=== PATIENT | male | born 1965 | race Caucasian/White ===

== ENCOUNTER 2019-03-28 12:01 | Inpatient (IN) ==
[2019-03-28] MEDS ORDERED: Famotidine 20 MG/2 ML VIAL IVP ONE (12:18)
[2019-03-28] MEDS ORDERED: Acetaminophen IV 1,000 MG/100 ML INFUS..BTL IVPB ONE (12:19)
[2019-03-28] MEDS ORDERED: Celecoxib 200 MG CAPSULE PO ONE (12:19)
[2019-03-28] MEDS ORDERED: Pregabalin 75 MG CAPSULE PO ONE (12:20)
[2019-03-28] MEDS ORDERED: *HR* OxyCODONE ER (12 HR) 10 MG TABLET PO ONE (12:20)
[2019-03-28] MEDS ORDERED: *HR* Promethazine 25 MG/ML VIAL IVP PRN (12:22)
[2019-03-28] MEDS ORDERED: *HR* Labetalol 20 MG/4 ML SYRINGE IVP PRN (12:22)
[2019-03-28] MEDS ORDERED: *HR* HYDROmorphone 2 MG TABLET PO PRN (12:22)
[2019-03-28] MEDS ORDERED: *HR* HYDROmorphone (PF) 1 MG/ML SYRINGE IVP PRN (12:22)
[2019-03-28] MEDS ORDERED: *HR* OxyCODONE Immed Rel 5 MG TABLET PO PRN (12:22)
[2019-03-28] MEDS ORDERED: Albuterol 2.5 MG/3 ML NEBULIZER IH ONE (12:25)
[2019-03-28] MEDS ORDERED: Clindamycin 900 MG/50 ML 900 MG/50 ML IV.SOLN IVPB ONE (12:25)
--- NOTE | 2019-03-28 12:29 | Anesthesia Evaluation PreOp ---
Date of Encounter: 03/28/19 Time of Encounter: 12:27 - Past History Planned Operation: Revision R-TSR Cardiac History: Denies any Significant Hx Pulmonary History: Smoker (currently E-cigs/"Vapes"), COPD (denies) ACADEMIC ADMINISTRATOR History: Other (Anxiety/Depression. Chronic pain/DDD/Lumbar stenosis) Other Medical History: GERD Anesthesia History: No Prior Anesthetic Complications, Past Anesthesia (Elbow 1997, R-TSR x 2 [2005&2010], Hernia repair 2009, Nasal/Sinus surgery, C5-6 Fusion 2002,) Medications and Allergies Allergy/AdvReac Type Severity Reaction Status Date / Time Penicillins Allergy Rash Verified 03/25/19 13:36 - Meds/Allergy Pre-op Review Medications Reviewed: Yes Allergies Reviewed: Yes Beta Blockers on Current Med List: No Anesthesia Results - Labs Laboratory Tests 03/25/19 03/25/19 03/25/19 13:44 13:44 13:44 WBC 4.3 Hct 39.1 Plt Count 209 PT 11.0 INR 1.0 Sodium 140 Potassium 4.6 Chloride 105 Carbon Dioxide 29 BUN 17 Creatinine 0.92 Est GFR (Non-Af Amer) > 60 Anesthesia Exam O2 Sat Height 1.73 m Weight 98.883 kg O2 Sat by Pulse Oximetry 93 Vital Signs Temp Pulse Resp BP Pulse Ox 98.1 F 89 18 125/74 93 03/28/19 12:19 03/28/19 12:19 03/28/19 12:19 03/28/19 12:19 03/28/19 12:19 Height: 5'8" Weight: 218# BMI = 33 NPO (# of Hours): MNoc - HEENT Pupil (Motor): Pupils equal, EOMI Mallampati: II Teeth: Missing (multiple darkened, broken discolored teeth. Many entirely missing), Poor dentition Oral Opening: Greater than 3 - ACADEMIC ADMINISTRATOR LOC: Oriented ACADEMIC ADMINISTRATOR Motor: Normal RUE, Normal LUE, Normal RLE, Normal LLE, Normal Face ACADEMIC ADMINISTRATOR Sensory: Normal: RUE, LUE, RLE, LLE, Face - Cardiac Rhythm: Regular Murmur: None - Pulmonary Breath Sounds: bilateral Clear Respiratory Effort: Symmetrical Anesthesia Assess/Plan ASA Score: 3 (Smoker, Chronic pain, Anxiety/Depression, Obesity/BMI = 33) Level of consciousness: Cooperative, Oriented, Tranquil Anesthetic Plan: General, Regional Nerve Block Reason for No Neuroaxial/Regional Block: Patient refusal Monitoring Plan: Standard Monitors Recovery Plan: PACU Anes Supervising Prov Stmt: Pt seen/evaluated, R&B discussed, questions answered and consent obtained. Juana Baptiste MD
[2019-03-28] MEDS ORDERED: Ringers Solution, Lactated 1,000 ML IVC SCH ×2 (12:30→16:48)
[2019-03-28] MEDS ORDERED: Dexamethasone 4 MG/ML VIAL ONE (12:35)
[2019-03-28] MEDS ORDERED: *HR* Midazolam HCl 2 MG/2 ML VIAL ONE (12:36)
[2019-03-28] MEDS ORDERED: *HR* FentaNYL (PF) 100 MCG/2 ML VIAL ONE (12:36)
[2019-03-28] MEDS ORDERED: *HR* Propofol 200 MG/20 ML VIAL IVP ONE (12:37)
[2019-03-28] MEDS ORDERED: *HR* Succinylcholine 200 MG/10 ML VIAL IVP ONE (12:37)
[2019-03-28] MEDS ORDERED: Ondansetron 4 MG/2 ML VIAL ONE (12:37)
[2019-03-28] MEDS ORDERED: Lidocaine -MPF 2% 2 ML VIAL ONE (12:37)
[2019-03-28] MEDS ORDERED: *HR* Rocuronium Bromide 50 MG/5 ML VIAL ONE (12:37)
[2019-03-28] MEDS ORDERED: Lidocaine HCL 4 ML Topical Solution (Laryng-O-Jet Kit Sterile Pak) TP ONE (12:41)
--- NOTE | 2019-03-28 12:49 | History & Physical Report ---
Date of Encounter: 03/28/19 Time of Encounter: 12:49 24 Hour HP Update - Instructions Instructions: If the History and Physical is less than 30 days old and was completed prior to A.M. admission and or procedure and has NOT been updated on calendar day of procedure please complete this update prior to performing procedure. - Update Patient reports changes in Medical Condition: No Changes in examination, assessment, or condition: No Changes in Medication: No Preop tests/diagnostics Reviewed: Yes Surgery Remains Indicated: Yes Consent for Planned Operative Procedure(s) Verified: Yes - Pre-Operative Checklist Preoperative Checklist Indicated: No Prophylactic Antibiotic Ordered: Yes Is VTE Prophylaxis Indicated?: Yes
[2019-03-28] MEDS ORDERED: Ropivacaine/PF 0.5% 30 ML VIAL ONE (13:06)
[2019-03-28] MEDS ORDERED: ROPIVACAINE/PF/NS 0.25% 1 EACH SYRINGE INTRAART ONE (13:07)
[2019-03-28] MEDS ORDERED: Ethanol\\Acetic Acid\\Na Ace\\Ben 1,000 ML IRRIG.SOLN IR ONE (13:32)
--- NOTE | 2019-03-28 13:34 | Anesthesia Procedures ---
Date of Encounter: 03/28/19 Time of Encounter: 13:25 Procedures: Anesthesia - Nerve Block Procedure Date: 03/28/19 Time: 13:25 Surgical Procedure: Right total shoulder Checklist: Correct Patient Identifier, Correct procedure, History checked Correct side: Right Blood Thinner: No Monitor Applied: EKG, BP, Pulse Oximetry Indication: Post Op Analgesia (per dr pleitez) Pre-op Neuro Deficits: No Block Type: Supraclavicular Catheter placed: No Sterile Technique: Yes Ultrasound used: Yes Anatomy identified: Yes Visual spread of Local: Yes Neuro Stimulation: No Blood on Needle Aspiration: No Smooth Injection of Local: Yes Pain with Injection of Local: No Prep: Chlorhexadine Needle: 22 x 50 mm Stimuplex Local: Ropivacaine (30ml 0.5% with 8mg of decadron supraclavicle 4ml 0.25% SCP 16ML ICB) Number of Attempts: 1 Complications: None/effective block Vitals: Vital Signs/O2 Sat/Glucose, Most Recent Temp Pulse Resp BP Pulse Ox 98.1 F 89 18 125/74 93 03/28/19 12:19 03/28/19 12:19 03/28/19 12:19 03/28/19 12:03/28/19 12:
[2019-03-28] MEDS ORDERED: EPHEDrine 50 MG/ML VIAL ONE (14:25)
--- NOTE | 2019-03-28 15:15 | Discharge Summary ---
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 Bourgeois is a 53 year old male The patient had an uneventful postoperative course. They received antibiotics and physical therapy and were discharged in stable condition. There will follow-up in the office in 2 weeks. - Time Spent with Patient Total time spent providing and/or coordinating discharge services: - Discharge Medications Prescriptions: New Aspirin Enteric Coated [Aspirin EC] 325 mg PO BID 10 Days #20 tablet. Docusate Sodium [Colace] 100 mg PO BID 5 Days #10 capsule OxyCODONE Immed Rel [Roxicodone 5 MG] 5 mg PO Q6HR PRN 5 Days #20 tablet PRN Reason: Severe Pain Continued Omeprazole [PriLOSEC] 40 mg PO DAILY Cyclobenzaprine [Flexeril] 10 mg PO TID PRN PRN Reason: Muscle Spasm Trazodone HCl 150 mg PO HS PRN PRN Reason: Sleep Lurasidone [Latuda] 40 mg PO HS Home Medications: Aspirin Enteric Coated [Aspirin EC] 325 mg PO BID 10 Days #20 tablet. 03/28/19 [Rx] Cyclobenzaprine [Flexeril] 10 mg PO TID PRN 03/28/19 [History] Docusate Sodium [Colace] 100 mg PO BID 5 Days #10 capsule 03/28/19 [Rx] Lurasidone [Latuda] 40 mg PO HS 03/28/19 [History] Omeprazole [PriLOSEC] 40 mg PO DAILY 03/28/19 [History] OxyCODONE Immed Rel [Roxicodone 5 MG] 5 mg PO Q6HR PRN 5 Days #20 tablet 03/28/19 [Rx] Trazodone HCl 150 mg PO HS PRN 03/28/19 [History] Allergies/Adverse Reactions: Allergy/AdvReac Type Severity Reaction Status Date / Time Penicillins Allergy Rash Verified 03/25/19 13:36 Date of admission: 03/28/19 16:53 Primary care physician: Farzana Hoover CNP Consults: 03/28/19 16:48 Consult to Occupational Therapy [CONS] Routine Comment: post shoulder surgery Reason for Consult: post shoulder surgery Does patient have active BEDREST order?: No Is patient medically & hemodynamically stable?: Yes Consult to Physical Therapy [CONS] Routine Comment: post shoulder surgery Reason for Consult: post shoulder surgery Does patient have active BEDREST order?: No Is patient medically & hemodynamically stable?: Yes Consult to Textile Slitting Machine Operator [CONS] Routine Reason for SW Consult: shoulder surgery RT Post Op Consult [CONS] Routine Labs on day of discharge: Labs from last 24 hours 03/29/19 03/29/19 03/28/19 04:31 04:31 16:18 Hgb 10.2 L 11.4 L Hct 31.8 L 35.1 L Sodium 139 Potassium 4.3 Chloride 105 Carbon Dioxide 26 BUN 21 H Creatinine 0.94 Est GFR ( Amer) > 60 Est GFR (Non-Af Amer) > 60 BUN/Creatinine Ratio 22 Glucose 120 H Calculated Osmolality 292 Calcium 8.1 L Preliminary micro results at discharge 03/28/19 14:40 Surgical Biopsy Culture - Preliminary Right Shoulder 03/28/19 14:40 Anaerobic Culture - Preliminary Right Shoulder Culture is incubating. - Patient Status Disposition: Home, Self-Care Condition: Good Functional capacity at discharge: independent ambulation Overall status at discharge: patient is progressing back to baseline - Discharge Instructions Follow Up With: Lovely Morrissey PAC [Physician Automatic Edger] - 04/07/19 10:30 am Arnold Mckeon MD [Partnered Physician] - 04/27/19 4:40 pm Farzana Hoover CNP [Primary Care Provider] - Additional Instructions: Discharge Instructions: Total Shoulder Please call [facility] ([phone]), your Primary Care Physician, or report to the Emergency Room if you have any of the following symptoms: Nausea, vomiting, fever greater that 101.5, swelling, chest pain, shortness of breath, increased pain/redness/drainage/odor for your incision site, numbness/tingling, or any other concerning symptoms. ACTIVITY: Always keep your arm in the sling. Do not raise your arm away from your body. Do not use your arm to help with getting in or out of bed. No weight bearing permitted. Only perform those exercises given to you by your therapist. Incentive Spirometer 10 times an hour. MEDICATIONS: Upon discharge resume your home medications. Take all the medications as prescribed. Take a stool softener if taking narcotic pain medications. Stool softeners are only effective if you drink enough fluids. Drink 6-8 glass of water or fluids a day, unless this is not allowed for another health problem. Despite using stool softeners, if you haven't had a bowel movement in 3 days, please switch to a gentle laxative. Gentle laxatives are sold over the counter. You should have a bowel movement within 24 hours, if not call the office. You will be discharged from the hospital with a prescription for pain medicati on. You are encouraged to decrease the use of narcotic pain medication as tolerated. Should you require a refill, please call the office. [facility] prescribes narcotic pain medication for only 4-6 weeks after surgery. If you require pain medication beyond this time period, you may be referred to your Primary Care Physician or to the Pain Clinic for further evaluation. Plan ahead for refills on pain medication as many narcotics either need to be picked up at the office or mailed. It is best to call 48-72 hours in advance of needing a prescription refill so you don't run out of medication. To help control the post-operative pain, you may take NSAIDs (Aleve,Advil, Motrin, Ibuprofen, Naprosyn) or Tylenol as prescribed on the bottle in addition to the pain medication. WOUND CARE: Leave the dressing on for 7-10 days. You may change the dressing if it becomes saturated greater than 50%. Do not get the dressing wet at anytime. Wash your hands with antibacterial soap, rinse and dry prior to any wound care. If you have khalif the visiting nurse or rehab facility can remove the stapes 10-14 days after surgery and place steri-strips across the wound. Leave the steri-strips in place until they fall off on their own. You may let water from the shower run on top of the steri-strips. If you do not have a visiting nurse or rehab facility, you will need to return to the office at 10-14 days for the khalif to be removed. If you have itching or redness around the dressing call the office. FOLLOW-UP: Please follow up with your surgeon in the orthopedic clinic, as scheduled <Lovely Morrissey - Last Filed: 04/04/19 06:27> Date of Encounter: 03/29/19 Time of Encounter: 08:45 - Discharge Diagnosis (1) Loosening of knee joint prosthesis Priority: Primary Status: Chronic Qualifiers: Encounter type: subsequent encounter Qualified Code(s): T84.038D - Mechanical loosening of other internal prosthetic joint, subsequent encounter; Z96.659 - Presence of unspecified artificial knee joint (2) Status post total right knee replacement Priority: Primary Status: Acute (3) Depression Priority: Secondary Status: Chronic Qualifiers: Depression Type: unspecified Qualified Code(s): F32.9 - Major depressive disorder, single episode, unspecified (4) Anxiety Priority: Secondary Status: Chronic (5) Current nicotine use Priority: Secondary Status: Chronic - Hospital Course Hospital course: Mr. Bourgeois is a 53 year old male - Time Spent with Patient Total time spent providing and/or coordinating discharge services: Primary care physician: Farzana Hoover CNP Discharging clinician: Arnold Mckeon Anticipated date of discharge: 03/29/19 - VTE Documentation of Mechanical Device: Venous foot pump, device - Patient Status Functional capacity at discharge: uses cane/walker Overall status at discharge: patient is progressing back to baseline - Diet and Activity Activity: as per physical therapy Diet: advance to your usual diet
--- NOTE | 2019-03-28 15:25 | Orthopedic Operative Note ---
Date of procedure: 03/28/19 Pre-op diagnosis: Aseptic loosening right total shoulder Post-op diagnosis: same Procedure: Procedure: Right Revision Total Shoulder replacement reverse Estimated blood loss: 200 cc Hardware: Arthrex: Metal and plastic replacement: Baseplate: 28, +4, 30 mm screw; 4 locking 5.5 screws sphere: 42+4, 13 apex humeral stem, 6 modular Naomi Procedural Notes: Aseptic loosening of both humeral stem and glenoid socket. Operative procedure: The patient was brought to the operating room and placed on the operating room table. The patient was placed in the modified beachchair position. All pressure points were padded appropriately. And the head was stabilized in the neutral position. The operative extremity was prepped and draped in the sterile surgical fashion. The patient received IV antibiotics prior to skin incision. A standard deltopectoral approach was made to the operative shoulder. Incision was made through the old incision, through the skin and subcutaneous tissue,hemo stasis was obtained with Bovie cautery. Using careful blunt dissection the cephalic vein was identified and mobilized medially. The deltopectoral interval was developed and the clavipectoral fascia was incised. An extensive debridement was performed, and the shoulder was dislocated. Using an osteotome to clear out the soft tissue, the humeral component was gently removed. This was grossly loose. Anterior and posterior Bankart retractors were used to ex pose the glenoid, the glenoid was loose as well and removed with an osteotome. Evaluation of the glenoid socket revealed some anterior bone loss. The glenoid guide was seated the centering hole was made the glenoid was reamed with the appropriate reamer. The glenoid baseplate was seated and secured and locked in place with the 4, 5.5 locking screws. The baseplate was irrigated and dried the glenosphere was seated and secured with the Baum taper and the central screw. Attention was then turned to the humeral side. The humerus was reamed and broached up to its appropriate size 13 in 20 degrees of retroversion. Trial reduction found the shoulder to be relocatable. Trial components were removed, real implants were seated. Trial reduction found the shoulder to be stable with the appropriate 6 Naomi. The trial implants were removed the real implants were seated and secured in the shoulder was reduced. The patient had excellent motion and excellent stability no shuck. The deep tissue was irrigated with pulse irrigation, the PA close the shoulder, the deltopectoral interval was closed with PDS suture. Superficially the subcutaneous tissue was closed with 0 PDS suture, the skin was closed with skin khalif. The patient placed sterile dressing, postoperative brace extubated and transferred to the recovery room in stable condition. Anesthesia: GETA Surgeon: Arnold Mckeon Was there an community relations assistant present: No Estimated blood loss (cc): 300 Condition: stable Disposition: PACU
--- NOTE | 2019-03-28 16:23 | Anesthesia Evaluation Post Op ---
Date of Encounter: 03/28/19 Time of Encounter: 16:21 - Vital Signs Vital Signs: Selected Entries 03/28/19 16:10 Temperature 97.0 F L Pulse Rate 64 Respiratory Rate 16 Blood Pressure 147/98 O2 Sat by Pulse Oximetry 97 - Lungs Lungs: Clear Ascult./Percussion - Airway Airway: Non-obstructed - Cardiovascular Regular Rate - Mental Status Mental Status: Alert & Oriented, Answers Appropriately - Pain Pain Scale: 0 - Nausea Vomiting Nausea Vomiting: Not Present - Hydration Hydration: Ice chips - Discharge PostOp Status: Transfer Patient to floor
[2019-03-28] MEDS ORDERED: *HR* OxyCODONE/APAP 5/325 TABLET PO PRN (16:48)
[2019-03-28] MEDS ORDERED: Naloxone 0.4 MG/ML INJ IVP PRN (16:48)
[2019-03-28] MEDS ORDERED: Sennosides 8.6 MG TABLET PO PRN (16:48)
[2019-03-28] MEDS ORDERED: Temazepam 15 MG CAPSULE PO PRN (16:48)
[2019-03-28] MEDS ORDERED: traMADol 50 MG TABLET PO PRN (16:48)
[2019-03-28] MEDS ORDERED: Ondansetron 4 MG/2 ML VIAL IVP PRN (16:48)
[2019-03-28] MEDS ORDERED: MOM Conc 10 ML UD.LIQ PO PRN (16:48)
[2019-03-28 16:51] LABS: Hematocrit 35.1 % (37.5-50.1); Hemoglobin 11.4 g/dL (12.9-16.9)
[2019-03-28] MEDS: *HR* Enoxaparin 30 MG/0.3 ML SYRINGE SQ SCH (17:24)
[2019-03-28] MEDS: Clindamycin 900 MG/50 ML 900 MG/50 ML IV.SOLN IVPB SCH ×2 (17:24→23:44)
[2019-03-28] MEDS ORDERED: *HR* Enoxaparin 30 MG/0.3 ML SYRINGE SQ SCH (18:00)
[2019-03-28] MEDS: *HR* OxyCODONE Immed Rel 5 MG TABLET PO PRN ×2 (18:01→22:35)
[2019-03-29] MEDS: *HR* Enoxaparin 30 MG/0.3 ML SYRINGE SQ SCH (04:52)
[2019-03-29] MEDS: *HR* OxyCODONE Immed Rel 5 MG TABLET PO PRN (04:52)
[2019-03-29 05:08] LABS: Hematocrit 31.8 % (37.5-50.1); Hemoglobin 10.2 g/dL (12.9-16.9)
[2019-03-29 05:31] LABS: BUN/Creatinine Ratio 22 (6-26); Blood Urea Nitrogen 21 mg/dL (6-20); Calcium 8.1 mg/dL (8.6-10.3); Carbon Dioxide 26 mEq/L (23-29); Chloride 105 mEq/L (98-107); Glucose 120 mg/dL (70-105); Osmolality,Calculated 292 (280-300); Potassium 4.3 mEq/L (3.5-5.1); Sodium 139 mEq/L (136-145); eGFR For African Americans > 60 (> 60); eGFR For Non-African Americans > 60 (> 60)
--- NOTE | 2019-03-29 06:46 | Orthopedics Progress Note ---
Date of Encounter: 03/29/19 Time of Encounter: 06:45 Subjective Interval history: Patient was seen this morning doing well without complaints. Afebrile vital signs stable. Operative extremity: Neurovascularly intact Dressing clean dry and intact Calves nontender Assessment and plan: Continue with postoperative care Hematocrit 31 discharged today Objective Vital signs: Vital Signs Temp Pulse Resp BP Pulse Ox 03/29/19 04:04 98 F 71 17 113/70 93 03/28/19 23:30 98.5 F 76 17 115/67 93 03/28/19 19:15 61 107/67 94 03/28/19 19:14 97.6 F 64 17 106/68 94 03/28/19 18:45 97.1 F L 63 18 115/71 94 03/28/19 17:45 96.8 F L 72 20 107/66 93 03/28/19 17:15 96.3 F L 67 18 102/66 96 03/28/19 16:45 97.6 F 68 18 113/71 94 03/28/19 16:30 97.4 F L 67 16 113/77 93 03/28/19 16:20 97.0 F L 66 16 124/86 95 03/28/19 16:10 97.0 F L 64 16 147/98 97 03/28/19 16:00 57 16 101/60 93 03/28/19 15:50 58 16 104/63 98 03/28/19 15:40 97.6 F 60 14 96/56 95 03/28/19 13:59 106/66 03/28/19 13:42 65 16 104/78 94 03/28/19 13:29 76 16 117/73 94 03/28/19 13:19 69 16 109/66 95 03/28/19 12:19 98.1 F 89 18 125/74 93 Intake and Output 03/28/19 03/28/19 03/29/19 15:59 23:59 07:59 Intake Total 0 / 50 50 / 50 Output Total 300 / 500 200 / 500 325 / 325 Balance -300 / -450 -150 / -450 -325 / -325 Intake: IV Fluids 0 / 50 50 / 50 Cleocin Premix 900 MG/50 ML 900 50 / 50 mg In 50 ml @ 50 mls/hr IVPB Q8HR [facility] Rx#:[id number] Vancocin 1,500 MG In 0.9 % 0 / 0 Sodium Chloride 250 ML @ 167 mls/hr IVPB ONCE ONE Rx#: [id number] Output: Urine 0 / 200 200 / 200 325 / 325 Estimated Blood Loss 300 / 300 Other: # Voids 1 Weight 98.883 kg 99.8 kg Patient Weight 03/29/19 23:59 Weight 99.8 kg - Labs CBC & BMP: 03/29/19 04:31 03/29/19 04:31 Labs: Abnormal lab results Hgb 10.2 g/dL (12.9-16.9) L 03/29/19 04:31 Hct 31.8 % (37.5-50.1) L 03/29/19 04:31 BUN 21 mg/dL (6-20) H 03/29/19 04:31 Glucose 120 mg/dL (70-105) H 03/29/19 04:31 Calcium 8.1 mg/dL (8.6-10.3) L 03/29/19 04:31 Consult Discharge Plan - Plan Referrals: Farzana Hoover, ELECTRONIC INDUSTRIAL CONTROLS MECHANIC [Primary Care Provider] -
[2019-03-29 07:56] VITALS: BP 127/76
--- NOTE | 2019-03-30 22:01 | Physician Discharge Referral ---
Home Health/Hosp Referral Info Transfer to: Home Health Attending Provider: Dr. Arnold Mckeon - Diagnosis (1) Loosening of knee joint prosthesis Priority: Primary Status: Chronic (2) Status post total right knee replacement Priority: Primary Status: Acute (3) Depression Priority: Secondary Status: Chronic (4) Anxiety Priority: Secondary Status: Chronic (5) Current nicotine use Priority: Secondary Status: Chronic - Respiratory Orders Smoking Cessation: Smoking cessation has been advised. For more information, call the [place] Tobacco Quit Line at 4-085-DZDP-NOW. - Diet/Nutrition Diet/Nutrition Orders: Regular - Activity Activity Orders: Up ad demi, Ambulate - Services Needed Following services are medically necessary services: Nursing, Home Health Aide, Physical Therapy, Occupational Therapy, Med Social Work Home Care Orders: Opsite placed. Keep dressing intact until first follow up appointment. If greater than 50% saturated, notify office, remove dressing and place appropriate dressing back in place. Leave Zipline intact. Opsite dressing is water resistant, not water-proof. OK to shower, but do not get dressing wet. PT/OT. NWB to affected upper extremity. Follow Shoulder Precautions x 6 weeks. Stay in brace during activity and at night. Remove brace during exercises. ICE and elevate extremity frequently throughout the day. - Transfer Medications Home Medications: Aspirin Enteric Coated [Aspirin EC] 325 mg PO BID 10 Days #20 tablet. 03/28/19 [Rx] Cyclobenzaprine [Flexeril] 10 mg PO TID PRN 03/28/19 [History] Docusate Sodium [Colace] 100 mg PO BID 5 Days #10 capsule 03/28/19 [Rx] Lurasidone [Latuda] 40 mg PO HS 03/28/19 [History] Omeprazole [PriLOSEC] 40 mg PO DAILY 03/28/19 [History] OxyCODONE Immed Rel [Roxicodone 5 MG] 5 mg PO Q6HR PRN 5 Days #20 tablet 03/28/19 [Rx] Trazodone HCl 150 mg PO HS PRN 03/28/19 [History] Allergies/Adverse Reactions: 3 Allergy/AdvReac Type Severity Reaction Status Date / Time Penicillins Allergy Rash Verified 03/25/19 13:36 Certification: Further, I certify that my clinical findings support that this patient is homebound (i.e. absences from home require considerable and taxing effort and are for medical reasons or tenriism services or infrequently or short duration when for other reasons) because: Homebound Reason: Post-surgery restriction and or conditions limit ability to leave home Attestation: My signature below is to certify that this patient is under my care and that I, or nurse practitioner, or a physician orthotic assistant working with me, has a [id number] encounter with this patient.
--- NOTE | 2019-03-31 12:26 | Physician Discharge Referral ---
Home Health/Hosp Referral Info Transfer to: Home Health Attending Provider: Dr. 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 For more information, call the [place] Tobacco Quit Line at 9-833-HNXL-NOW. - Diet/Nutrition Diet/Nutrition Orders: Regular - Activity Activity Orders: Up ad demi, Ambulate, Chair - Services Needed Following services are medically necessary services: Nursing, Home Health Aide, Physical Therapy, Occupational Therapy, Med Social Work Home Care Orders: Opsite placed. Keep dressing intact until first follow up appointment. If greater than 50% saturated, notify office, remove dressing and place appropriate dressing back in place. Leave Zipline intact. Opsite dressing is water resistant, not water-proof. OK to shower, but do not get dressing wet. PT/OT. NWB to affected upper extremity. Follow Shoulder Precautions x 6 weeks. Stay in brace during activity and at night. Remove brace during exercises. ICE and elevate extremity frequently throughout the day. - Transfer Medications Home Medications: Aspirin Enteric Coated [Aspirin EC] 325 mg PO BID 10 Days #20 tablet. 03/28/19 [Rx] Cyclobenzaprine [Flexeril] 10 mg PO TID PRN 03/28/19 [History] Docusate Sodium [Colace] 100 mg PO BID 5 Days #10 capsule 03/28/19 [Rx] Lurasidone [Latuda] 40 mg PO HS 03/28/19 [History] Omeprazole [PriLOSEC] 40 mg PO DAILY 03/28/19 [History] OxyCODONE Immed Rel [Roxicodone 5 MG] 5 mg PO Q6HR PRN 5 Days #20 tablet 03/28/19 [Rx] Trazodone HCl 150 mg PO HS PRN 03/28/19 [History] Allergies/Adverse Reactions: Allergy/AdvReac Type Severity Reaction Status Date / Time Penicillins Allergy Rash Verified 03/25/19 13:36 Certification: Further, I certify that my clinical findings support that this patient is homebound (i.e. absences from home require considerable and taxing effort and are for medical reasons or church services or infrequently or short duration when for other reasons) because: Homebound Reason: Post-surgery restriction and or conditions limit ability to leave home Attestation: My signature below is to certify that this patient is under my care and that I, or nurse practitioner, or a physician human resources office assistant working with me, has a [id number] encounter with this patient.
== END 2019-03-29 10:12 | disposition home or self-care (01) | DRG 322 ==
LOC: SAMDAY 12:01 → 3NENU 16:53
PROVIDERS: ADMIT Orthopaedic Surgery; ATTEND Orthopaedic Surgery